=== PATIENT | male | born 1985 | race American Indian/Alaskan Native ===

== ENCOUNTER 2019-05-24 00:24 | Emergency (ER) | payer SELFPAY ==
[2019-05-24] MEDS ORDERED: ASPIRIN 325 MG TAB PO ONE (01:12)
--- NOTE | 2019-05-24 01:41 | XRay Report ---
CHEST 1 VIEW INDICATION: Chest Pain. COMPARISON: none FINDINGS: SUPPORT DEVICES: None. HEART / MEDIASTINUM: No significant abnormality. LUNGS / PLEURA: No significant pulmonary or pleural abnormality. No pneumothorax. ADDITIONAL FINDINGS: IMPRESSION: 1. No acute cardiopulmonary disease Signer Name: Ramsey Power MD Signed: 05/24/2019 1:37 AM Workstation Name: [id number]
[2019-05-24 02:05] LABS: Basophils % (Auto) 0.6 % (0.0-1.8); Eosinophils # (Auto) 0.1 K/mm3 (0.0-0.4); Eosinophils % (Auto) 2.3 % (0.0-4.3); Hematocrit 44.2 % (35.5-45.6); Hemoglobin 14.7 gm/dl (11.8-15.2); Lymphocytes # (Auto) 2.7 K/mm3 (1.2-5.4); Lymphocytes % (Auto) 45.8 % (13.4-35.0); Mean Corpuscular HGB Conc 33 % (32-34); Mean Corpuscular Volume 94 fl (84-94); Monocytes # (Auto) 0.6 K/mm3 (0.0-0.8); Monocytes % (Auto) 10.1 % (0.0-7.3); Platelet Count 151 K/mm3 (140-440); Red Cell Distribution Width 14.4 % (13.2-15.2)
[2019-05-24 02:54] LABS: BUN/Creatinine Ratio 21; Blood Urea Nitrogen 29 mg/dL (9-20); Calcium 9.8 mg/dL (8.4-10.2); Hemolysis Index 9
--- NOTE | 2019-05-24 05:52 | Emergency Department Report ---
ED Chest Pain HPI - General Chief Complaint: Chest Pain Stated Complaint: CHEST PAIN SORE THROAT Time Seen by Provider: 05/24/19 04:00 Source: patient Mode of arrival: Ambulatory Limitations: No Limitations - History of Present Illness Initial Comments: 34-year-old -[place] male presents to the emergency department with complaint of some intermittent sharp midsternal chest pains that been going on since yesterday. The pain seems to worsen when he lays flat and other times will just come randomly. No obvious alleviating factors. Patient says that he had some issues with chest pain and shortness of breath in April of this year and was at [facility] and was admitted to the hospital. At that time he says he was diagnosed with CHF and had a heart catheterization done but no stents placed. He is a former tobacco smoker and will occasionally smoke marijuana. No family history of early cardiac disease or events. No recent travel or sick contacts at home. He denies any fever, shortness of breath, lower extremity swelling, but the patient does complain of a few days of a sore throat. - Related Data Previous Rx's Medication Instructions Recorded Last Taken Type Ibuprofen [Motrin 600 MG tab] 600 mg PO Q8H PRN #20 tablet 05/24/19 Unknown Rx Allergies Allergy/AdvReac Type Severity Reaction Status Date / Time LORI Inhibitors Allergy Angioedema Verified 05/24/19 01:03 Sulfa (Sulfonamide Allergy Anaphylaxis Verified 05/24/19 01:04 Antibiotics) Heart Score - HEART Score History: Slightly suspicious EKG: Non-specific Age: < 45 Risk factors: 1-2 risk factors Troponin: < normal limit HEART Score: 2 - Critical Actions Critical Actions: 0-3 pts:0.9-1.7%risk of adverse cardiac event.Candidate for discharge ED Review of Systems ROS: Stated complaint: CHEST PAIN SORE THROAT Other details as noted in HPI Comment: All other systems reviewed and negative Constitutional: denies: chills, fever Eyes: denies: eye pain, vision change ENT: throat pain. denies: ear pain Respiratory: denies: cough, shortness of breath Cardiovascular: chest pain. denies: palpitations Gastrointestinal: denies: abdominal pain, vomiting Genitourinary: denies: dysuria, discharge Musculoskeletal: denies: back pain, arthralgia Skin: denies: rash, lesions Neurological: denies: headache, weakness ED Past Medical Hx - Past Medical History Previous Medical History?: Yes Hx Congestive Heart Failure: Yes - Surgical History Past Surgical History?: No - Social History Smoking Status: Former Smoker - Medications Home Medications: Home Medications Medication Instructions Recorded Confirmed Last Taken Type Ibuprofen [Motrin 600 MG tab] 600 mg PO Q8H PRN #20 tablet 05/24/19 Unknown Rx ED Physical Exam - General Limitations: No Limitations - Other Other exam information: GENERAL: The patient is well-developed well-nourished. HENT: Normocephalic. Atraumatic. Patient has moist mucous membranes. EYES: Extraocular motions are intact. NECK: Supple. Trachea is midline. CHEST/LUNGS: Clear to auscultation. There is no respiratory distress noted. There is some reproducible tenderness to palpation along the midsternal chest wall but no crepitus or deformity. HEART/CARDIOVASCULAR: Regular. There is no tachycardia. There is no murmur. ABDOMEN: Abdomen is soft, nontender. Patient has normal bowel sounds. SKIN: Skin is warm and dry. NEURO: The patient is awake, alert, and oriented. The patient is cooperative. Normal speech. MUSCULOSKELETAL: There is no tenderness or deformity. There is no limitation range of motion. There is no evidence of acute injury. ED Course Vital Signs 05/24/19 00:41 Temperature 97.9 F Pulse Rate 78 Respiratory 18 Rate Blood Pressure 123/50 O2 Sat by Pulse 95 Oximetry LENY score - Leny Score Age > 65: (0) No Aspirin use within the Past 7 Days: (0) No 3 or more CAD Risk Factors: (0) No 2 or more Angina events in past 24 hrs: (1) Yes Known CAD with more than 50% Stenosis: (0) No Elevated Cardiac Markers: (0) No ST Deviation Greater than 0.5mm: (0) No LENY Score: 1 ED Medical Decision Making - Lab Data Result diagrams: 05/24/19 01:33 05/24/19 01:33 - EKG Data -: EKG Interpreted by Me EKG shows normal: sinus rhythm, axis, intervals, QRS complexes (Q waves to the septal and anterior leads, LVH), ST-T waves (T wave inversions to the inferior leads) Rate: normal - EKG Data When compared to previous EKG there are: previous EKG unavailable Interpretation: other (Sinus rhythm, LVH, Q waves to the septal and anterior leads, T wave inversions to the inferior leads) - Radiology Data Radiology results: image reviewed interpreted by me: Chest x-ray does not show any acute process. There are no pleural effusions, obvious pneumonia and there is no pneumothorax. - Medical Decision Making This patient presents to the emergency department with a complaint of some intermittent midsternal sharp chest pains that sometimes worsened when he is laying flat. On examination he has normal sounding heart and lungs to auscultation. He does have some reproducible tenderness to palpation along the midsternal chest wall without any crepitus or deformity. He does not appear to be in any acute distress. An EKG was done that shows some Q waves to the anterior and septal leads, as well as some T wave inversions to the inferior leads, but no signs of ST elevation OK. Chest x-ray does not show any pleural effusions, pneumonia, pneumothorax, focal consolidation, or any other acute process. The patient's labs have been unremarkable including negative troponins x2. The patient is low on the Wells score criteria and negative on the pulmonary embolism rule out criteria. He has a low heart and LENY score. For all these reasons the patient appears safe for discharge home at this time. On top of that, the patient allegedly had a negative heart catheterization done last month at [facility]. I attempted to get the results of this, as well as a EKG for comparison, but was unable to do that during these early hours. The patient will be discharged home to follow-up with his primary care physician and the cardiology group that he saw through [facility]. However his contact information has also been sent to our cardiology group, [facility], as we have a protocol for low risk chest pain patients and they will provide close outpatient follow-up. The patient has been instructed to return to the emergency department with any worsening of his symptoms or any acute distress. - Differential Diagnosis Costochondritis, pneumonia, OK, GERD Critical Care Time: No Critical care attestation.: If time is entered above; I have spent that time in minutes in the direct care of this critically ill patient, excluding procedure time. ED Disposition Clinical Impression: Intermittent chest pain Pharyngitis Qualifiers: Pharyngitis/tonsillitis etiology: unspecified etiology Qualified Code(s): J02.9 - Acute pharyngitis, unspecified Disposition: DC-01 TO HOME OR SELFCARE Is pt being admited?: No Condition: Stable Instructions: Chest Pain (ED), Pharyngitis (ED), Costochondritis (ED) Additional Instructions: I have sent your contact information to the [facility] cardiologists and someone from their office should be contacting you shortly for close outpatient follow-up. However, you should feel free to follow-up with the cardiology group whom you saw at [facility]. It is also recommended to follow-up with a primary care physician. Return to the emergency department immediately with any worsening of your symptoms or any acute distress. Prescriptions: Ibuprofen [Motrin 600 MG tab] 600 mg PO Q8H PRN #20 tablet PRN Reason: Pain Referrals: JIM VILLA MD [Staff Physician] - 2-3 Days Time of Disposition: 05:53
[2019-05-24 06:40] VITALS: BP 120/75
== END 2019-05-24 06:33 | disposition home or self-care (01) ==
LOC: ED 00:24
DX: J02.9 Acute pharyngitis, unspecified (principal); R07.82 Intercostal pain; Z87.891 Personal history of nicotine dependence
CPT/HCPCS: 36415; 71045; 80048; 84484; 85025; 87116; 87430; 93005; 93010; 99284

== ENCOUNTER 2020-05-07 21:49 | Observation (INO) | payer OTHER ==
[2020-05-07] MEDS ORDERED: ASPIRIN 325 MG TAB PO ONE (22:55)
--- NOTE | 2020-05-07 22:57 | Event Note ---
ED Screening Note ED Screening Note: pt presents with midsternal CP that began today he describes it as a burning sensation he states he has associated nausea and mild vomiting he states he did drink heavily with his friends yesterday he denies any sob, cough, leg swelling pmhx aortic regurg and CHF allergy to enapril, sulfa states he needs aortic valve replacement This initial assessment/diagnostic orders/clinical plan/treatment(s) is/are subject to change based on patients health status, clinical progression and re- assessment by fellow clinical providers in the ED. Further treatment and workup at subsequent clinical providers discretion. Patient/guardian urged not to elope from the ED as their condition may be serious if not clinically assessed and managed. Initial orders include: CP protocol
--- NOTE | 2020-05-07 23:32 | XRay Report ---
CHEST 2 VIEWS INDICATION / CLINICAL INFORMATION: Chest Pain. COMPARISON: 05/24/2019 FINDINGS: SUPPORT DEVICES: None. HEART / MEDIASTINUM: No significant abnormality. LUNGS / PLEURA: No significant pulmonary or pleural abnormality. No pneumothorax. ADDITIONAL FINDINGS: No significant additional findings. IMPRESSION: 1. No acute findings. Signer Name: Jack Cruz MD Signed: 05/07/2020 11:28 PM Workstation Name: [id number]
[2020-05-07 23:51] LABS: Basophils % (Auto) 0.4 % (0.0-1.8); Eosinophils # (Auto) 0.2 K/mm3 (0.0-0.4); Eosinophils % (Auto) 2.3 % (0.0-4.3); Hematocrit 42.2 % (35.5-45.6); Hemoglobin 14.6 gm/dl (11.8-15.2); Lymphocytes # (Auto) 2.8 K/mm3 (1.2-5.4); Lymphocytes % (Auto) 32.3 % (13.4-35.0); Mean Corpuscular HGB Conc 35 % (32-34); Mean Corpuscular Volume 96 fl (84-94); Monocytes % (Auto) 11.2 % (0.0-7.3); Platelet Count 187 K/mm3 (140-440); Red Blood Count 4.41 M/mm3 (3.65-5.03); Red Cell Distribution Width 14.5 % (13.2-15.2)
[2020-05-08] LABS: INR 0.95 (0.87-1.13); Partial Thromboplastin Time 29.4 Sec. (24.2-36.6)
[2020-05-08 00:07] LABS: Alanine Aminotransferase 33 units/L (7-56); Albumin 5.1 g/dL (3.9-5); BUN/Creatinine Ratio 14; Blood Urea Nitrogen 17 mg/dL (9-20); Calcium 9.8 mg/dL (8.4-10.2); Hemolysis Index 9
--- NOTE | 2020-05-08 00:09 | Emergency Department Report ---
ED Chest Pain HPI - General Chief Complaint: Chest Pain Stated Complaint: CHEST PAIN PUI?: No Time Seen by Provider: 05/07/20 22:55 Source: patient Mode of arrival: Ambulatory Limitations: No Limitations - History of Present Illness Initial Comments: Patient is a 35-year-old male who presents emergency room with left-sided chest pain and epigastric pain. Patient states that his symptoms started yesterday. Patient states his symptoms are consistent. Patient states that he is having left chest pressure nonradiating. Patient states the epigastric pain is a burning sensation and a pressure in the epigastric region. Patient states he had some nausea and vomiting yesterday. Patient denies shortness of breath. Patient states he has a history of CHF secondary to aortic stenosis. Patient denies diaphoresis. Patient denies recent travel. Patient denies recent international travel. Patient denies exposure to the novel coronavirus. Patient denies sick contacts. Patient denies fever and chills. Patient denies cough. Patient denies diarrhea. Patient denies coming in contact with anybody with symptoms of the no tavo coronavirus. MD Complaint: chest pain -: Sudden Onset: during rest Pain Location: left chest, epigastric Pain Radiation: none Severity scale (0 -10): 4 Quality: pressure Consistency: constant Improves With: rest Worsens With: exertion re: nausea, vomting. denies: diaphoresis, dyspnea, sense of impending doom Other Symptoms: denies: cough, fever, syncope, rash, acid taste in mouth, leg swelling, palpitations, burping Treatments Prior to Arrival: none Aspirin use within the Past 7 Days: (1) Yes - Related Data On Oral Contraceptives: No Previous Rx's Medication Instructions Recorded Last Taken Type Ibuprofen [Motrin 600 MG tab] 600 mg PO Q8H PRN #20 tablet 05/24/19 Unknown Rx Allergies Allergy/AdvReac Type Severity Reaction Status Date / Time LORI Inhibitors Allergy Angioedema Verified 05/24/19 01:03 Sulfa (Sulfonamide Allergy Anaphylaxis Verified 05/24/19 01:04 Antibiotics) Heart Score - HEART Score History: Moderately suspicious EKG: Significant ST-depression Age: < 45 Risk factors: No known risk factors Troponin: < normal limit HEART Score: 3 ED Review of Systems ROS: Stated complaint: CHEST PAIN Other details as noted in HPI Constitutional: denies: chills, fever Eyes: denies: eye pain, eye discharge, vision change ENT: denies: ear pain, throat pain Respiratory: denies: cough, shortness of breath, wheezing Cardiovascular: as per HPI, chest pain. denies: palpitations Endocrine: no symptoms reported Gastrointestinal: as per HPI, abdominal pain, nausea, vomiting. denies: diarrhea Genitourinary: denies: urgency, dysuria Musculoskeletal: denies: back pain, joint swelling, arthralgia Skin: denies: rash, lesions Neurological: denies: headache, weakness, paresthesias Psychiatric: denies: anxiety, depression Hematological/Lymphatic: denies: easy bleeding, easy bruising ED Past Medical Hx - Past Medical History Previous Medical History?: Yes Hx Congestive Heart Failure: Yes Additional medical history: Aortic valve regurgitation - Surgical History Past Surgical History?: No - Family History Family history: no significant - Social History Smoking Status: Former Smoker Substance Use Type: None - Medications Home Medications: Home Medications Medication Instructions Recorded Confirmed Last Taken Type Ibuprofen [Motrin 600 MG tab] 600 mg PO Q8H PRN #20 tablet 05/24/19 Unknown Rx ED Physical Exam - General Limitations: No Limitations General appearance: alert, in no apparent distress - Head Head exam: Present: atraumatic, normocephalic - Eye Eye exam: Present: normal appearance - ENT ENT exam: Present: mucous membranes moist - Neck Neck exam: Present: normal inspection - Respiratory Respiratory exam: Present: normal lung sounds bilaterally. Absent: respiratory distress, chest wall tenderness - Cardiovascular Cardiovascular Exam: Present: regular rate, normal rhythm. Absent: systolic murmur, diastolic murmur, rubs, gallop - GI/Abdominal GI/Abdominal exam: Present: soft, normal bowel sounds. Absent: tenderness - Rectal Rectal exam: Present: deferred - Extremities Exam Extremities exam: Present: normal inspection - Back Exam Back exam: Present: normal inspection - Neurological Exam Neurological exam: Present: alert, oriented X3 - Psychiatric Psychiatric exam: Present: normal affect, normal mood - Skin Skin exam: Present: warm, dry, intact, normal color. Absent: rash ED Course Vital Signs 05/07/20 05/08/20 22:44 00:02 Temperature 98.2 F Pulse Rate 83 Respiratory 18 16 Rate Blood Pressure 182/70 O2 Sat by Pulse 98 Oximetry - Reevaluation(s) Reevaluation #1: I discussed all results with patient. I discussed plan of care with patient. Patient agrees with plan of care and admission. Patient to be admitted to the hospitalist service. 05/08/20 01:13 - Consultations Consultation #1: Hospitalist consulted for admission. Hospitalist to admit patient. 05/08/20 01:13 LENY score - Leny Score Age > 65: (0) No Aspirin use within the Past 7 Days: (0) No 3 or more CAD Risk Factors: (0) No 2 or more Angina events in past 24 hrs: (1) Yes Known CAD with more than 50% Stenosis: (0) No Elevated Cardiac Markers: (0) No ST Deviation Greater than 0.5mm: (0) No LENY Score: 1 ED Medical Decision Making - Lab Data Result diagrams: 05/07/20 22:56 05/07/20 22:56 - EKG Data -: EKG Interpreted by Me EKG shows normal: sinus rhythm, axis, intervals, QRS complexes, ST-T waves Rate: normal - EKG Data Interpretation: LVH, other (Peaked T waves. Abnormal EKG) - Radiology Data Radiology results: report reviewed, image reviewed interpreted by me: Chest x-ray: No pneumonia, no pneumothorax, no foreign body, no osseous findings, no acute findings CHEST 2 VIEWS INDICATION / CLINICAL INFORMATION: Chest Pain. COMPARISON: 05/24/2019 FINDINGS: SUPPORT DEVICES: None. HEART / MEDIASTINUM: No significant abnormality. LUNGS / PLEURA: No significant pulmonary or pleural abnormality. No pneumothorax. ADDITIONAL FINDINGS: No significant additional findings. IMPRESSION: 1. No acute findings. - Medical Decision Making Patient is a 35-year-old male with a history of CHF and aortic valve disease. Patient presents emergency with left chest pain and epigastric pain. Patient chest pain is nonradiating. Patient also complained of nausea and vomiting. Patient had labs done which were essentially unremarkable. except for elevated BNP patient troponin was negative. Patient's chest x-ray was negative for acute findings. Patient's EKG showed chronic changes and is abnormal. Patient's ST segments were normal. Patient had peak T waves. Patient admitted to the hospital service for further evaluation treatment and rule out ACS. - Differential Diagnosis Chest pain, epigastric pain, reflux, ACS, Critical Care Time: Yes Critical care time in (mins) excluding proc time.: 35 Critical care attestation.: If time is entered above; I have spent that time in minutes in the direct care of this critically ill patient, excluding procedure time. Critical Care Time: 35 minutes ED Disposition Clinical Impression: Chest pain Qualifiers: Chest pain type: unspecified Qualified Code(s): R07.9 - Chest pain, unspecified Disposition: OP ADMIT IP TO THIS HOSP Is pt being admited?: Yes Does the pt Need Aspirin: No Condition: Critical Instructions: Chest Pain (ED) Referrals: PRIMARY CARE, [Primary Care Provider] - 3-5 Days Time of Disposition: 01:08
[2020-05-08] MEDS ORDERED: ASPIRIN 325 MG TAB PO ONE (01:20)
--- NOTE | 2020-05-08 01:47 | History and Physical Report ---
History of Present Illness Date of examination: 05/08/20 Date of admission: 05/08/20 01:08 Chief complaint: chest pain History of present illness: Patient is a 35-year-old male who presents emergency room with left-sided chest pain and epigastric pain. Patient states that his symptoms started yesterday. Patient states his symptoms are consistent. Patient states that he is having left chest pressure nonradiating. Patient states the epigastric pain is a burning sensation and a pressure in the epigastric region. Patient states he had some nausea and vomiting yesterday. Patient denies shortness of breath. Patient states he has a history of CHF secondary to aortic stenosis. Patient denies diaphoresis. ED work-up shows WBC 8.5, hemoglobin 14.6, sodium level 134, potassium 4.1 Creatinine is 1.2, BNP 481 checks x-ray done no acute findings Patient seen in ED at bedside. Patient alert and oriented x3. Patient reported chest pain. Pain level is 3/10 at the time of this assessment Patient reported a history of tobacco use half pack daily but quit recently he also reported a history of aortic stenosis and CHF. Patient he reports that his symptom is persistent nonradiating and not epigastric area. He denies shortness of breath and nausea and vomiting. Reviewed lab values, medication record, and vital signs. Past History Past Medical History: heart failure, hypertension, other (aortic stenosis) Past Surgical History: No surgical history Social history: lives with family, smoking (smoked 1/2 pack daily but have quit) Family history: no significant family history Medications and Allergies Allergies Allergy/AdvReac Type Severity Reaction Status Date / Time LORI Inhibitors Allergy Angioedema Verified 05/24/19 01:03 Sulfa (Sulfonamide Allergy Anaphylaxis Verified 05/24/19 01:04 Antibiotics) Home Medications Medication Instructions Recorded Confirmed Last Taken Type Ibuprofen [Motrin 600 MG tab] 600 mg PO Q8H PRN #20 tablet 05/24/19 Unknown Rx Review of Systems Constitutional: fatigue, weakness Eyes: bilateral: blurred vision Ears, nose, mouth and throat: no epistaxis, no bleeding gums Cardiovascular: chest pain, high blood pressure Respiratory: no congestion, no wheezing Genitourinary Male: no hematuria, no flank pain Musculoskeletal: no neck stiffness Integumentary: no rash, no pruritis Neurological: no head injury Psychiatric: anxiety Endocrine: no thyroid mass Hematologic/Lymphatic: no easy bruising Allergic/Immunologic: no urticaria Exam - Constitutional Vitals: Temp Pulse Resp BP Pulse Ox 98.2 F 83 16 182/70 98 05/07/20 22:44 05/07/20 22:44 05/08/20 00:02 05/07/20 22:44 05/07/20 22:44 General appearance: Present: mild distress, well-nourished - EENT Eyes: Present: PERRL ENT: hearing intact, clear oral mucosa - Neck Neck: Present: supple, normal ROM - Respiratory Respiratory effort: normal Respiratory: bilateral: CTA - Cardiovascular Heart rate: 80 Heart Sounds: Present: S1 & S2. Absent: rub, click - Extremities Extremities: pulses symmetrical, No edema Peripheral Pulses: within normal limits - Abdominal General gastrointestinal: Present: soft, non-tender, non-distended, normal bowel sounds Male genitourinary: Present: normal - Integumentary Integumentary: Present: clear, warm, dry - Musculoskeletal Musculoskeletal: gait normal, strength equal bilaterally - Psychiatric Psychiatric: appropriate mood/affect, intact judgment & insight, cooperative - Neurologic Neurologic: CNII-XII intact, moves all extremities - Allied Health Allied health notes reviewed: nursing HEART Score - HEART Score EKG: Significant ST-depression Age: < 45 Risk factors: No known risk factors Troponin: Troponin T < 0.010 ng/mL (0.00-0.029) 05/07/20 22:56 Troponin: < normal limit Results - Labs CBC & Chem 7: 05/07/20 22:56 05/07/20 22:56 Labs: Abnormal lab results 05/07/20 05/07/20 Range/Units 22:56 22:56 MCV 96 H (84-94) fl MCH 33 H (28-32) pg MCHC 35 H (32-34) % [place] % (Auto) 11.2 H (0.0-7.3) % [place] # (Auto) 1.0 H (0.0-0.8) K/mm3 Sodium 134 L (137-145) mmol/L Chloride 93.7 L (98-107) mmol/L Total Bilirubin 1.30 H (0.1-1.2) mg/dL NT-Pro-B Natriuret Pep 481.4 H (0-450) pg/mL Albumin 5.1 H (3.9-5) g/dL Assessment and Plan - Patient Problems (1) Chest pain Current Visit: Yes Status: Acute Qualifiers: Chest pain type: unspecified Qualified Code(s): R07.9 - Chest pain, unspecified Plan to address problem: Start cardioprotective measures- aspirin statin statin and BB as needed sublingual for chest pain Echo ordered follow-up with result Consult instrument repairer helper (2) Hypertension Current Visit: Yes Status: Acute Plan to address problem: Monitor blood pressure Resume home antihypertensive (3) History of CHF (congestive heart failure) Current Visit: Yes Status: Acute Plan to address problem: History of CHF likely secondary to aortic stenosis Patient reports a history of aortic stenosis We will resume home diuretics (4) DVT prophylaxis Current Visit: Yes Status: Acute Plan to address problem: Subcutaneous Lovenox
[2020-05-08] MEDS ORDERED: hydrALAZINE 20 MG/1 ML INJ IV PRN (02:01)
[2020-05-08] MEDS ORDERED: SENNOSIDES 8.6 MG TAB PO PRN (02:07)
[2020-05-08] MEDS ORDERED: MAGNESIUM HYDROXIDE (MOM) ORAL LIQD UDC PO PRN (02:07)
[2020-05-08] MEDS ORDERED: ALUM-MAG HYDROXIDE-SIMETHICONE 200-200-20MG/5ML ORAL LIQD 30 ML PO PRN (02:07)
[2020-05-08] MEDS ORDERED: ISOSORBIDE DINITRATE 20 MG TAB PO SCH (03:00)
[2020-05-08] MEDS ORDERED: carvediloL 6.25 MG TAB PO SCH (03:00)
[2020-05-08] MEDS ORDERED: FAMOTIDINE 20 MG TAB PO SCH (10:00)
[2020-05-08] MEDS ORDERED: ASPIRIN EC 81 MG TAB PO SCH (10:00)
--- NOTE | 2020-05-08 10:40 | Consultation ---
History of Present Illness Consult date: 05/08/20 Requesting physician: HERBER TAVERAS Consult reason: chest pain History of present illness: The patient is a 35-year-old male with a reported past medical history of HFpEF, aortic regurgitation and aortic stenosis, HTN. He reports he is regularly followed by [facility]. He presented with c/o a bout of left-sided chest pain and epigastric pain on the day of presentation. Pt admits that he was binge drinking alcohol with his friends and then started vomiting. He noted some blood-tinged emesis and then developed burning chest and epigastric pain which scared him and thus he decided to seek medical attention. Pt reports his symptoms have since resolved. He denies any SOB, palpitations, diaphoresis, di zziness or syncope. Pt reports a diagnosis of HFpEF, aortic regurgitation and aortic stenosis during a hospitalization for "fluid on the lungs" at [facility] 8 months ago. Pt reports undergoing LHC at that time which showed normal coronaries. He reports that he is currently being evaluated by [facility] CT surgery for possible aortic valve replacement. Past History Past Medical History: heart failure, hypertension, other (AR and ) Past Surgical History: No surgical history Social history: lives with family, smoking (smoked 1/2 pack daily but have quit) Family history: no significant family history Medications and Allergies Allergies Allergy/AdvReac Type Severity Reaction Status Date / Time LORI Inhibitors Allergy Angioedema Verified 05/24/19 01:03 Sulfa (Sulfonamide Allergy Anaphylaxis Verified 05/24/19 01:04 Antibiotics) Home Medications Medication Instructions Recorded Confirmed Last Taken Type Ibuprofen [Motrin 600 MG tab] 600 mg PO Q8H PRN #20 tablet 05/24/19 Unknown Rx Active Meds: Active Medications Al Hydrox/Mg Hydrox/Simethicone (Alum-Mag Hydroxide-Simethicone [id number]/5ml Oral Liqd 30 Ml) 30 ml PO Q4H PRN PRN Reason: Indigestion Aspirin (Aspirin Ec 81 Mg Tab) 81 mg PO QDAY [facility] Last Admin: 05/08/20 10:07 Dose: 81 mg Documented by: Atorvastatin Calcium (Atorvastatin 40 Mg Tab) 40 mg PO QHS [facility] Carvedilol (Carvedilol 6.25 Mg Tab) 6.25 mg PO BID [facility] Last Admin: 05/08/20 10:06 Dose: 6.25 mg Documented by: Famotidine (Famotidine 20 Mg Tab) 20 mg PO BID [facility] Last Admin: 05/08/20 10:06 Dose: 20 mg Documented by: Hydralazine HCl (Hydralazine 20 Mg/1 Ml Inj) 5 mg IV Q4HR PRN PRN Reason: Hypertension Isosorbide Mononitrate (Isosorbide Mononitrate Er 60 Mg Tab) 60 mg PO QDAY [facility] Last Admin: 05/08/20 10:05 Dose: 60 mg Documented by: Magnesium Hydroxide (Magnesium Hydroxide (Mom) Oral Liqd Udc) 30 ml PO Q4H PRN PRN Reason: Constipation Senna (Sennosides 8.6 Mg Tab) 8.6 mg PO BID PRN PRN Reason: Constipation Sodium Chloride (Sodium Chloride 0.9% 10 Ml Flush Syringe) 10 ml IV BID [facility] Last Admin: 05/08/20 10:07 Dose: 10 ml Documented by: Sodium Chloride (Sodium Chloride 0.9% 10 Ml Flush Syringe) 10 ml IV PRN PRN PRN Reason: LINE FLUSH Review of Systems Constitutional: no weight loss, no weight gain, no fever, no chills, no sweats Ears, nose, mouth and throat: no ear pain, no nose pain, no sinus pressure, no sinus pain Cardiovascular: chest pain, high blood pressure, no orthopnea, no palpitations, no rapid/irregular heart beat, no edema, no syncope, no lightheadedness, no shortness of breath, no dyspnea on exertion Respiratory: no cough, no shortness of breath, no dyspnea on exertion, no congestion, no wheezing, no pain on inspiration Gastrointestinal: abdominal pain (epigastric), nausea, vomiting, no diarrhea, no constipation, no change in bowel habits Genitourinary Male: no dysuria, no hematuria, no flank pain, no discharge, no urinary frequency, no urinary hesitancy Musculoskeletal: no neck stiffness, no neck pain, no shooting arm pain, no arm numbness/tingling, no low back pain, no shooting leg pain Integumentary: no rash, no pruritis, no redness, no sores, no wounds Neurological: no head injury, no paralysis, no weakness, no parathesias, no numbness, no tingling, no seizures, no syncope Psychiatric: no anxiety Endocrine: no cold intolerance, no heat intolerance Hematologic/Lymphatic: no easy bruising, no easy bleeding Allergic/Immunologic: no urticaria Physical Examination Vital Signs Temp Pulse Resp BP Pulse Ox 98.2 F 83 18 182/70 98 05/07/20 22:44 05/07/20 22:44 05/07/20 22:44 05/07/20 22:44 05/07/20 22:44 General appearance: no acute distress HEENT: Positive: PERRL, Normocephaly, Mucus Membranes Moist Neck: Positive: neck supple, trachea midline Cardiac: Positive: Reg Rate and Rhythm, S1/S2, Systolic Murmur Lungs: Positive: Decreased Breath Sounds Neuro: Positive: Grossly Intact Abdomen: Negative: Tender Skin: Negative: Rash Musculoskeletal: No Pain Extremities: Absent: edema Results 05/07/20 22:56 05/07/20 22:56 Cardiac Enzymes 05/07/20 Range/Units 22:56 AST 26 (5-40) units/L Coagulation 05/07/20 Range/Units 22:56 PT 12.6 (12.2-14.9) Sec. INR 0.95 (0.87-1.13) APTT 29.4 (24.2-36.6) Sec. CBC 05/07/20 Range/Units 22:56 WBC 8.5 (4.5-11.0) K/mm3 RBC 4.41 (3.65-5.03) M/mm3 Hgb 14.6 (11.8-15.2) gm/dl Hct 42.2 (35.5-45.6) % Plt Count 187 (140-440) K/mm3 Lymph # (Auto) 2.8 (1.2-5.4) K/mm3 [place] # (Auto) 1.0 H (0.0-0.8) K/mm3 Eos # (Auto) 0.2 (0.0-0.4) K/mm3 Baso # (Auto) 0.0 (0.0-0.1) K/mm3 Comprehensive Metabolic Panel 05/07/20 Range/Units 22:56 Sodium 134 L (137-145) mmol/L Potassium 4.1 (3.6-5.0) mmol/L Chloride 93.7 L (98-107) mmol/L Carbon Dioxide 28 (22-30) mmol/L BUN 17 (9-20) mg/dL Creatinine 1.2 (0.8-1.3) mg/dL Glucose 88 (75-100) mg/dL Calcium 9.8 (8.4-10.2) mg/dL AST 26 (5-40) units/L ALT 33 (7-56) units/L Alkaline Phosphatase 97 (35-129) units/L Total Protein 7.3 (6.3-8.2) g/dL Albumin 5.1 H (3.9-5) g/dL - Imaging and Cardiology Echo: pending EKG: report reviewed, image reviewed EKG interpretations - Telemetry EKG Rhythm: Sinus Rhythm - EKG Sinus rhythms and dysrhythmias: sinus rhythm Chamber hypertrophy or enlargement: left ventricular hypertro Assessment and Plan Pt presented with c/o a bout of burning left-sided chest pain and epigastric pain after binge drinking alcohol with his friends, nausea and vomiting. He reports a diagnosis of HFpEF, aortic regurgitation and aortic stenosis during a hospitalization for "fluid on the lungs" at [facility] 8 months ago. Pt reports undergoing LHC at that time which showed normal coronaries. He reports that he is currently being evaluated by [facility] CT surgery for possible aortic valve replacement. His symptoms are currently resolved. AMI r/o. No current clinical evidence of acutely decompensated HF. No plans for repeat ischemic evaluation at this time. Obtain tte and attempt to obtain medical records from [facility]. Consider d/c today pending tte results. Will follow. The patient has been seen in conjunction with Dr. Nichole who agrees with the assessment and plan of care. - Patient Problems (1) Chest pain Current Visit: Yes Status: Acute Qualifiers: Chest pain type: unspecified Qualified Code(s): R07.9 - Chest pain, unspecified (2) Epigastric pain Current Visit: Yes Status: Acute (3) Nausea and vomiting Current Visit: Yes Status: Acute (4) History of aortic stenosis Current Visit: Yes Status: Chronic (5) History of aortic regurgitation Current Visit: Yes Status: Chronic (6) Hypertension Current Visit: Yes Status: Chronic
[2020-05-08 17:00] VITALS: BP 163/74
--- NOTE | 2020-05-08 17:16 | Discharge Summary ---
Providers - Providers Date of Admission: 05/08/20 01:08 Date of discharge: 05/08/20 Attending physician: KIRIT TOLEDO 05/08/20 02:04 Consult to Physician [CONS] Routine Comment: Consulting Provider: MEDARDO FIELDS Physician Instructions: Reason For Exam: chest pain Primary care physician: [facility] DISORDER PSYCHOLOGIST Hospitalization Condition: Critical Hospital course: History of present illness: Patient is a 35-year-old male who presents emergency room with left-sided chest pain and epigastric pain. Patient states that his symptoms started yesterday. Patient states his symptoms are consistent. Patient states that he is having left chest pressure nonradiating. Patient states the epigastric pain is a bur fer sensation and a pressure in the epigastric region. Patient states he had some nausea and vomiting yesterday. Patient denies shortness of breath. Patient states he has a history of CHF secondary to aortic stenosis. Patient denies diaphoresis. ED work-up shows WBC 8.5, hemoglobin 14.6, sodium level 134, potassium 4.1 Creatinine is 1.2, BNP 481 checks x-ray done no acute findings Patient seen in ED at bedside. Patient alert and oriented x3. Patient reported chest pain. Pain level is 3/10 at the time of this assessment Patient reported a history of tobacco use half pack daily but quit recently he also reported a history of aortic stenosis and CHF. Patient he reports that his symptom is persistent nonradiating and not epigastric area. He denies shortness of breath and nausea and vomiting. Reviewed lab values, medication record, and vital signs. No chest pain Recent Normal Patient wants to go home Assessment and Plan - Patient Problems (1) Acute coronary syndrome Current Visit: Yes Status: Acute Qualifiers: Chest pain type: unspecified Qualified Code(s): R07.9 - Chest pain, unspecified Plan to address problem: Cardiology consult appreciated Echocardiogram done ejection fraction is 45 to 50% (2) Hypertension Current Visit: Yes Status: Acute Plan to address problem: Patient on hydralazine and carvedilol (3) HCHF (congestive heart failure) Current Visit: Yes Status: Acute Plan to address problem: History of CHF likely secondary to aortic stenosis Patient reports a history of aortic stenosis We will resume home diuretics Patient on Lasix but not on potassium patient. Patient to be discharged on potassium 1220 mg once a day Disposition: [id number] TO HOME OR SELFCARE Time spent for discharge: 35 minutes - Discharge Diagnoses (1) Acute coronary syndrome Status: Acute Comment: Troponins were negative Patient had a cath recently which was normal hence no Lexiscan Echocardiogram showed preserved ejection ejection fraction 45 to 50% (2) Hypertension Status: Chronic Qualifiers: Hypertension type: essential hypertension Qualified Code(s): I10 - Essential (primary) hypertension Comment: Continue hydralazine and Coreg (3) Coronary artery disease Status: Chronic Comment: Continue isosorbide (4) DVT prophylaxis Status: Acute Core Measure Documentation - Palliative Care Palliative Care/ Comfort Measures: Not Applicable - Core Measures Any of the following diagnoses?: none Exam - Constitutional Vitals: Temp Pulse Resp BP Pulse Ox 97.9 F 71 18 163/74 100 05/08/20 15:48 05/08/20 15:48 05/08/20 15:48 05/08/20 15:48 05/08/20 15:48 General appearance: Present: no acute distress, well-nourished - EENT Eyes: Present: PERRL ENT: hearing intact, clear oral mucosa - Neck Neck: Present: supple, normal ROM - Respiratory Respiratory effort: normal Respiratory: bilateral: CTA - Cardiovascular Heart rate: 78 Heart Sounds: Present: S1 & S2. Absent: rub, click - Extremities Extremities: pulses symmetrical, No edema Peripheral Pulses: within normal limits - Abdominal General gastrointestinal: Present: soft, non-tender, non-distended, normal bowel sounds Male genitourinary: Present: normal - Integumentary Integumentary: Present: clear, warm, dry - Musculoskeletal Musculoskeletal: gait normal, strength equal bilaterally - Psychiatric Psychiatric: appropriate mood/affect, intact judgment & insight - Neurologic Neurologic: CNII-XII intact, moves all extremities Plan Activity: no restrictions Diet: low salt Follow up with: KARI WEBB MD [Primary Care Provider] - 3-5 Days NATALIIA FINLEY MD [Staff Physician] - 7 Days
== END 2020-05-08 18:08 | disposition home or self-care (01) ==
LOC: ED 21:49 → 4A 05-08 01:08
PROVIDERS: ADMIT Internal Medicine Geriatric Medicine; ATTEND Internal Medicine
DX: I11.0 Hypertensive heart disease with heart failure (principal); I50.9 Heart failure, unspecified; R07.89 Other chest pain; I35.0 Nonrheumatic aortic (valve) stenosis; I35.1 Nonrheumatic aortic (valve) insufficiency; R11.2 Nausea with vomiting, unspecified; Z87.891 Personal history of nicotine dependence; Z79.82 Long term (current) use of aspirin
CPT/HCPCS: 36415; 71046; 80053; 83690; 83880; 84484; 85025; 85610; 85730; 93005; 93306; 99291; G0378